=== PATIENT | male | born 1975 | race Caucasian/White ===

== ENCOUNTER 2021-04-16 11:44 | Emergency (ER) | payer OTHER ==
[~2021-04-16 11:44] MED LIST: ACID CONTROL150 MG PO; ASPIRIN CHEWABL81 MG PO; NORVASC 5 MG TAB5 MG PO; TOPROL XL25 MG PO; ZANTAC150 MG PO
[2021-04-16 12:41] LABS: RED BLOOD COUNT 5.2 M/UL (4.20-5.50); WHITE BLOOD COUNT 12.5 K/UL (4.5-11.0)
[2021-04-16 13:15] LABS: BUN/CREATININE RATIO 11 (0-10)
[2021-04-16] MEDS ORDERED: CYCLOBENZAPRINE5 MG PO (16:25)
[2021-04-16] MEDS ORDERED: MOBIC15 MG PO (16:25)
== END 2021-04-16 16:30 | disposition home or self-care (01) ==
LOC: ER1 11:44
PROVIDERS: Emergency Medicine
DX: K42.9 Umbilical hernia without obstruction or gangrene (principal); N28.1 Cyst of kidney, acquired; R60.0 Localized edema; E11.9 Type 2 diabetes mellitus without complications; I10 Essential (primary) hypertension; F17.200 Nicotine dependence, unspecified, uncomplicated
CPT/HCPCS: 80053; 81001; 82150; 83690; 85025; 96374; 96375; 99284; J2270; J2405; Q9967